=== PATIENT | male | born 1950 | race Caucasian/White ===

== ENCOUNTER 2019-04-12 13:25 | Outpatient (CLI) | payer MEDICARE, BC, SELFPAY ==
[2019-04-12 14:08] LABS: Basophils % 0.5 %; Eosinophils # 0.2 10^3/uL (0.0-0.8); Eosinophils % 5.4 %; Hemoglobin 13.2 g/dL (11.7-16.6); Lymphocytes # 1.4 10^3/uL (0.8-4.8); Lymphocytes % 33.8 %; Mean Corpuscular Hemoglobin 30.6 pg (28.0-34.0); Mean Corpuscular Volume 92.8 fL (80-94); Mean Platelet Volume 10.7 fL (7.4-10.4); Monocytes # 0.4 10^3/uL (0.2-0.9); Monocytes % 10.5 %; Neutrophils # 2.1 10^3/uL (1.8-7.7); Neutrophils % 49.8 %; Nucleated Red Blood Cells % 0 %; Platelet Count 86 10^3/cmm (130-400); Red Blood Count 4.31 10^6/uL (4.1-5.3); Red Cell Distribution Width 14.3 % (12.1-15.1); White Blood Count 4.1 10^3/uL (4.0-10.0)
--- NOTE | 2019-04-12 15:44 | ONC FU_ITS ---
Dr. Espinoza follow up note Patient: Soren Fox Unit #: [id number]: 1950 Dicatated By: Dennise Espinoza M.D.Date of Visit:Apr 12, 2019 Onc Med Follow-up/Prog Note History of Present Illness: Mr. Soren Rodrigez, is a 68-year-old gentleman with history of year-long mild to moderate thrombocytopenia, never required platelet transfusion and no history of gross bleeding As per patient in December 2017 he was diagnosed with cryptogenic hepatic cirrhosis as all the workup done was inconclusive. Is also diagnosed with nonbleeding esophageal varices. Not sure about size of spleen. As per patient his platelet count usually stay between 80 -100,000 , Patient denies any history of alcohol use. Patient denies any melena or hematochezia, denies any nausea or vomiting, denies any petechiae or ecchymosis patient denies any hematuria or hemoptysis or hematemesis. Patient denies any night sweats or peripheral lymphadenopathy or weight loss or recurrent fever. Patient denies taking any new medication. Patient denies any history of recurrent infections. Came for follow-up, denies any specific complaints, no nosebleed no gum bleeding no petechia, or ecchymosis, patient said he is not taking any aspirin or nonsteroidal. No jaundice, no hemoptysis or hematemesis. Medications: Amitriptyline HCl 1 Tablet (of 25 mg) Oral daily, Claritin 1 Capsule (of 10 mg) Oral daily, Dicyclomine HCl 1 Tablet (of 20 mg) Oral PRN, Finasteride 1 Tablet (of 5 mg) Oral daily, Gabapentin 2 Capsule (of 300 mg) Oral t.i.d., Imodium A-D 1 Tablet Oral PRN, Lasix 1 Tablet Oral daily, Lisinopril 1 Tablet (of 20 mg) Oral daily, metFORMIN HCl 1 Tablet (of 500 mg) Oral b.i.d., Polyethylene Glycol 3350 1 Powder daily, Promethazine HCl 1 Tablet (of 25 mg) Oral PRN, rOPINIRole HCl 1 Tablet (of 1 mg) Oral t.i.d., Tamsulosin HCl 1 Capsule (of 0.4 mg) Oral b.i.d. Allergies: levoFLOXacin Review of Systems: Constitutional - Appetite is fair but weight is decreasing. No fever, chills, hot flashes, or night sweats. Energy level is good, ENMT - Positive for sinus congestion/drainage. No mouth sores. No sore throat or difficulty swallowing, Hematologic/Lymphatic - Positive for easy bleeding, Respiratory - No shortness of breath. No cough. No pleuritic pain or hemoptysis, Cardiovascular - No angina pain. No palpitations, Gastrointestinal - No nausea or vomiting. No heartburn or acid reflux. Positive for diarrhea, no constipation. No blood in the stool or black stools, Genitourinary (M) - No dysuria or hematuria. No urinary frequency. No urgency or incontinence, Musculoskeletal - Positive for joint pain, Neurologic - Positive for headache and dizziness. No numbness/paresthesias or other focal neurologic symptoms, Psychiatric - Positive for anxiety and depression. No insomnia. Vital Signs: Performed on Apr 12, 2019 15:17 Height - 72.00 in Weight - 239.0 lbs (HIGH) BSA - 2.30 sq.m BMI - 32.41 (HIGH) Temperature - 98.5 F Pulse - 86 /min Respiration - 24 /min BP - 141/80 mm(hg) (HIGH) O2 Sat - 96 % Pain - 0 Performance Status: 0 - Fully active, able to carry on all predisease activities without restrictions. (ECOG) Physical Examination: ENMT - No oral exudates, ulcers, masses, thrush or mucositis. Oropharynx clear. Tongue normal, Respiratory - Lungs are clear to auscultation without rhonchi or wheezing, Cardiovascular - Regular rate and rhythm of heart, Abdomen - Non-tender, non-distended, Good bowel sounds. No guarding or rebound tenderness. No pulsatile masses, Extremities - no edema. Lab/Imaging: Test performed on Apr 12, 2019 13:29 WBC 4.1 10^9/L RBC 4.31 10^12/L HGB 13.2 g/dL HCT 40.0 % MCV 92.8 fl MCH 30.6 pg MCHC 33.0 g/dL RDW 14.3 % Platelet Count 86 10^9/L MPV 10.7 fL Neutrophils (Gran) 2.1 10^9/L Lymphocytes 1.4 10^9/L Monocytes 0.4 10^9/L Eosinophils 0.2 10^9/L Basophils 0.0 10^9/L Manual Lymphocytes 33.8 % Manual Monocytes 10.5 % Manual Eosinophils 5.4 % Manual Basophils 0.5 % NRBCs 0.0 /100 WBC Test performed on Feb 08, 2019 13:37 Neutrophil % 52.6 % Lymphocyte % 30.5 % Monocyte % 10.0 % Eosinophil % 6.3 % Basophils % 0.3 % Impression: Mild to moderate leukopenia/thrombocytopenia, etiology appears to be multifactorial, including possibility of splenic sequestration as patient has history of cryptogenic hepatic cirrhosis and nonbleeding esophageal varices e.g. sign of portal hypertension thus possibility of splenomegaly/splenic sequestration cannot be ruled out. Considering his age, coexistent underlying myelodysplasia cannot be ruled out. Other possibility could be medication induced but less likely. History of cryptogenic hepatic cirrhosis, diagnosed in December 2017, now being followed by planning analyst in [facility]. Esophageal varices, nonbleeding type. Plan: Discussed with patient regarding his labs white blood count hb 13.2 crit 40 platelets 86,000 Clinically, patient is doing well, no signs symptom suggestive of gross bleeding, no petechiae or ecchymosis. His follow-up CBC shows stable mild to moderate thrombocytopenia. At this point no further workup and will continue to monitor return to clinic in 2 months with CBC unless episode of bleeding. Patient was advised to avoid nonsteroidals or aspirin or any trauma. Signed By: Dennise Espinoza M.D. <<Signature on File>>
== END 2019-04-12 13:26 | disposition home or self-care (01) ==
LOC: ONCMED 13:26
PROVIDERS: Family Provider Internal Medicine; PCP Internal Medicine; Visit Provider Internal Medicine Hematology & Oncology
DX: D69.6 Thrombocytopenia, unspecified (principal); K74.60 Unspecified cirrhosis of liver; I85.10 Secondary esophageal varices without bleeding
CPT/HCPCS: 36415; 85025; G0463

== ENCOUNTER 2019-05-23 09:42 | Day surgery (SDC) | payer MEDICARE, BC, SELFPAY ==
[2019-05-20 14:35] VITALS: BMI 31.8
[2019-05-23] MEDS: sodium chloride 0.9% 1,000 ML 30 ML (10:15)
[2019-05-23 10:26] VITALS: BP 124/75; PULSE 75; RESP 18; TEMP 36.9; O2SAT 97
[2019-05-23 10:30] LABS: Glucose Point of Care 91 mg/dL (70-110)
--- NOTE | 2019-05-23 10:53 | ANES.PREANE2 ---
Pre-Anesthetic Assessment Pre-Anesthetic Assessment: Height/Weight: Height 1.83 m Weight 106.594 kg Temp Pulse Resp BP Pulse Ox 98.4 F 75 18 124/75 97 05/23/19 10:26 05/23/19 10:26 05/23/19 10:26 05/23/19 10:05/23/19 10:26 Proposed Procedure: Operation Date: 05/23/19 12:00 Proposed Procedures p Colonoscopy(Not Applicable) - Corby Wood MD Was Beta Nu taken within 24 hours: N/A Last intake: Intake Last Liquid Date 05/22/19 Last Liquid Time 22:00 Last Solid Date 05/21/19 Social: Social History: No alcohol and No tobacco Exam: Pre-Anes Outpt Exam: alert, oriented x 3, clear to auscultation bilaterally and regular rate & rhythm Airway: Submandibular: Other (limited) Cervical ROM: Other (limited ) MP: 3 Dentition: Partials (top) History/ROS: No significant history except as noted and No significant complaints Pulmonary: Pulmonary: None reported CV/HEM: CV/HEM: HTN : Comments: UPJ obstruction Hepatic: Hepatic: Cirrohsis (cryptogenic) GI: GI: None reported Metabolic: Metabolic: DM and Morbid obesity Musc/skel: Musc/skel: OA/DJD Neuropsych: Neuropsych: None reported Anesthetic Plan: ASA status: 3 Anesthesia: MAC PFSH Anesthesia PFSH: Social History (Updated 05/20/19 @ 14:27 by Nevaeh Nair) Smoking and tobacco status: never smoked Alcohol intake: never Data Anesthesia Other Labs: Laboratory Results - last 48 hr 05/23/19 10:26 POC Glucose 91 Cardiac Studies: No Data to Display
--- NOTE | 2019-05-23 11:43 | W.PM.OPSFHP ---
Same Day Surgery H&P Indication for Procedure/HPI DATE OF PROCEDURE: May 23, 2019 CHIEF COMPLAINT/INDICATIONFOR SURGICAL PROCEDURE: Abdominal pain PREOP DIAGNOSIS: Colitis PLANNED PROCEDRUE: Operation Date: 05/23/19 12:00 Proposed Procedures p Colonoscopy(Not Applicable) - Corby Wood MD This is a pleasant 68 years old gentleman with previous hospitalization due to colitis patient was treated conservatively and was discharged with the plan to perform a colonoscopy at some, patient does report he has male partner being HIV positive but the patient himself is HIV negative, the original plan was to perform a screening colonoscopy last March but for some reason it got postponed to this month yet the patient continues to have history of abdominal cramps and bloating. According to him he was tested for HIV and was negative ROS All systems have been reviewed negative except as per the above Medications/Allergies* Home Medications Medication Instructions Recorded Confirmed Type dicyclomine 10 mg PO QID PRN 05/20/19 05/20/19 History finasteride 5 mg PO DAILY 05/20/19 05/23/19 History gabapentin 600 mg PO TID 05/20/19 05/23/19 History lactulose 30 ml PO DAILY 05/20/19 05/20/19 History lisinopril 10 mg PO DAILY 05/20/19 05/23/19 History metformin 500 mg PO BID 05/20/19 05/23/19 History multivitamin [Multiple Vitamins] 1 tab PO DAILY 05/20/19 05/23/19 History ropinirole 2 mg PO TID 05/20/19 05/23/19 History tamsulosin 0.8 mg PO BID 05/20/19 05/23/19 History Allergies/Adverse Reactions Allergy/AdvReac Type Severity Reaction Status Date / Time ibuprofen Allergy ADR-Nausea Verified 05/23/19 11:43 Iodinated Contrast Media Allergy Unknown Verified 05/23/19 11:43 levofloxacin [From Levaquin] Allergy Unknown Verified 05/23/19 11:43 Pertinent History/Comorbid Conditions* Social History Smoking and tobacco status: never smoked Alcohol intake: never Pertinent Exam Findings alert and procedure specific exam findings (Abdominal examination nontender mildly distended soft no guarding or peritonitis) Recommendations Surgery/Procedure today Other Plans: Plan of care; After thorough history and physical examination and reviewing the chart, plan to perform screening colonoscopy in the GI lab. All questions have been answered and all concerns have been addressed to patient's satisfaction. Informed consent per chart were,Indications, risks, benefits, and alternatives were all discussed with the patient and did agree to proceed. Verbal and written Instructions were given to the patient for colonoscopy prep Coding Level of Care Code Acute Medical Health Researcher for Chg Fwd Time Spent (min) 10
[2019-05-23 12:15] VITALS: BP 98/61; PULSE 67; RESP 16; TEMP 36.2; O2SAT 95
--- NOTE | 2019-05-23 12:19 | ANE.PACU2 ---
 Inpatient post-anesthesia follow up: Airway intact: Yes Vital signs: Temperature 97.2 F Pulse Rate 67 Respiratory Rate 16 Blood Pressure 98/61 Pulse Oximetry 95 Oxygen Delivery Me thod Nasal Cannula Oxygen Flow Rate 2 Fraction of Inspir ed Oxygen Hydration adequate: Yes Nausea and vomiting: No Mental status: Baseline
[2019-05-23 12:30] VITALS: BP 95/57; PULSE 72; RESP 18; TEMP 36.2; O2SAT 95
== END 2019-05-23 12:51 | disposition home or self-care (01) ==
PROVIDERS: Family Provider Internal Medicine; PCP Internal Medicine; Visit Provider Surgery
PROC: 0DJD8ZZ Inspection of Lower Intestinal Tract, Via Natural or Artificial Opening Endoscopic (ICD-10-PCS; CPT 45378; principal; 2019-05-23 12:00)
DX: K52.9 Noninfective gastroenteritis and colitis, unspecified (principal); K57.30 Diverticulosis of large intestine without perforation or abscess without bleeding; I10 Essential (primary) hypertension; E11.9 Type 2 diabetes mellitus without complications; E66.01 Morbid (severe) obesity due to excess calories; M19.90 Unspecified osteoarthritis, unspecified site
CPT/HCPCS: 12345; 36416; 45378; 82962; J2704; J7030

== ENCOUNTER 2019-06-03 08:36 | Outpatient (CLI) | payer MEDICARE, BC, SELFPAY ==
--- NOTE | 2019-06-03 | XR_ITS ---
WS: [id number] CHEST 2 VIEWS HISTORY: COUGH, SOB, CONGESTION X 1 WEEK COMPARISON: 01/26/2019 Lungs: Hyperinflated lungs with diffuse interstitial thickening. New area of atelectasis which is sub segmental and linear at the LEFT lung base. No focal pneumonia. Cardiac size: Normal. Mediastinum/Aorta: Normal mediastinum. Bones: Normal. XR/XR chest 2V* [id number] IMPRESSION: 1. Diffuse interstitial thickening may be related to acute bronchitis or mild interstitial edema. 2. No pneumonia.
== END 2019-06-03 08:37 | disposition home or self-care (01) ==
PROVIDERS: Family Provider Internal Medicine; PCP Internal Medicine; Visit Provider Nurse Practitioner Family
DX: Z01.89 Encounter for other specified special examinations (principal)

== ENCOUNTER 2019-06-28 07:05 | Outpatient (CLI) | payer MEDICARE, BC, SELFPAY ==
[2019-06-28 08:04] LABS: Basophils % 0.3 %; Eosinophils # 0.2 10^3/uL (0.0-0.8); Eosinophils % 6.6 %; Hematocrit 38.7 % (42.0-52.0); Hemoglobin 12.5 g/dL (11.7-16.6); Lymphocytes # 1.2 10^3/uL (0.8-4.8); Lymphocytes % 40.1 %; Mean Corpuscular HGB Conc 32.3 g/dL (30.0-36.0); Mean Corpuscular Hemoglobin 31.2 pg (28.0-34.0); Mean Corpuscular Volume 96.5 fL (80-94); Mean Platelet Volume 11.2 fL (7.4-10.4); Monocytes # 0.3 10^3/uL (0.2-0.9); Monocytes % 9.4 %; Neutrophils # 1.2 10^3/uL (1.8-7.7); Neutrophils % 43.3 %; Nucleated Red Blood Cells % 0 %; Platelet Count 71 10^3/cmm (130-400); Red Blood Count 4.01 10^6/uL (4.1-5.3); Red Cell Distribution Width 14.6 % (12.1-15.1); White Blood Count 2.9 10^3/uL (4.0-10.0)
== END 2019-06-28 07:06 | disposition home or self-care (01) ==
LOC: ONCMED 06-29 09:46
PROVIDERS: Family Provider Internal Medicine; PCP Internal Medicine; Visit Provider Internal Medicine Hematology & Oncology
DX: D69.6 Thrombocytopenia, unspecified (principal)
CPT/HCPCS: 36415; 85025

== ENCOUNTER 2020-02-28 09:04 | Outpatient (CLI) | payer MEDICARE, BC, SELFPAY ==
--- NOTE | 2020-02-28 | US_ITS ---
WS: [id number] RIGHT UPPER QUADRANT ULTRASOUND HISTORY: CIRRHOSIS COMPARISON: 01/12/2019 Liver: 14.0 cm in length. The entire liver is poorly visualized. There is marked attenuation from hep atic steatosis. No mass or bile duct dilatation. Gallbladder: Normally distended gallbladder. No: Physis. There may be a small amount of fluid adjacen t to the gallbladder or ascites. CBD: 0.4 cm Pancreas: Not visualized. Right kidney: 11.6 cm in length. Normal size and echogenicity. No hydronephrosis or mass. Aorta and IVC: Not visualized. Tiny amount fluid adjacent to the gallbladder may be ascites. US/US liver [id number] IMPRESSION: 1. Significantly limited evaluation of the RIGHT upper quadrant. 2. Negative gallbladder. 3. There is a small amount of fluid adjacent to the gallbladder which may be a scites. 4. Marked hepatic steatosis. Liver is incompletely visualized.
== END 2020-02-28 09:05 | disposition home or self-care (01) ==
LOC: RADOUTREAD 11:11
PROVIDERS: PCP Internal Medicine; Visit Provider Internal Medicine
DX: K74.60 Unspecified cirrhosis of liver (principal); K76.0 Fatty (change of) liver, not elsewhere classified
CPT/HCPCS: 76705

== ENCOUNTER 2020-03-20 10:34 | Outpatient (CLI) | payer MEDICARE, BC, SELFPAY ==
--- NOTE | 2020-03-20 11:00 | US_ITS ---
WS: [id number] RENAL ULTRASOUND HISTORY: Hydronephrosis. COMPARISON: 03/16/2019 TECHNIQUE: 2-D and color Doppler imaging of the kidney submitted. Right kidney: 12.0 cm x 5.0 cm x 5.7 cm. Normal echogenicity with no hydronephrosis or mass. Left kidney: 13.0 cm x 5.0 cm x 5.7 cm. Normal size kidney. Moderate hydronephrosis and extrarenal pelvis which is dilated. This is been prev iously described. Be related to a UP junction obstruction. The LEFT ureter is not dilated. Nonobstruc ting calcification in the lower pole measures 7 mm. Aorta: Normal. Urinary Bladder: Normally distended urinary bladder. There is mild diffuse bladder wall thickening. P rostate gland is enlarged encroaching into the bladder. Similar appearance as to the prior study. US/US renal BI* [id number] IMPRESSION: 1. Moderate hydronephrosis LEFT kidney. No ureteral dilatation. Favor LEFT UP junction obstruction which has been previously described. No progression. 2. Enlarged prostate gland resulting in mild diffuse bladder wall hypertrophy.
== END 2020-03-20 10:35 | disposition home or self-care (01) ==
LOC: US 10:36
PROVIDERS: PCP Internal Medicine; Visit Provider Urology
DX: N13.30 Unspecified hydronephrosis (principal); N40.0 Benign prostatic hyperplasia without lower urinary tract symptoms; N32.89 Other specified disorders of bladder
CPT/HCPCS: 76770; 81003

== ENCOUNTER 2020-04-24 11:46 | Emergency (ER) | payer MEDICARE, BC, SELFPAY ==
[2020-04-24 11:51] VITALS: BP 130/71; PULSE 92; RESP 20; TEMP 36.7; O2SAT 95; BMI 33.9
[2020-04-24 11:59] VITALS: BP 152/79; PULSE 91; O2SAT 96
--- NOTE | 2020-04-24 12:22 | US_ITS ---
WS: [id number] Exam: US abdomen lmt fluid [id number] Date/Time of Exam: 04/24/2020 12:28 PM Reason For Exam: cirrhosis, abd distension, ?ascites A limited abdominal ultrasound was performed for detection of possible ascites. Sonographic evaluation of the upper and lower quadrants of the right and left abdomen reveal no ascit es. US/US abdomen lmt fluid [id number] IMPRESSION: 1. No ascites demonstrated in the right or left abdomen.
[2020-04-24 12:34] LABS: Basophils % 0.3 %; Eosinophils # 0.1 10^3/uL (0.0-0.8); Eosinophils % 4.1 %; Hematocrit 36.9 % (42.0-52.0); Hemoglobin 11.8 g/dL (11.7-16.6); Lymphocytes # 0.9 10^3/uL (0.8-4.8); Lymphocytes % 26.2 %; Mean Corpuscular Hemoglobin 31.4 pg (28.0-34.0); Mean Corpuscular Volume 98.1 fL (80-94); Mean Platelet Volume 10.7 fL (7.4-10.4); Monocytes # 0.3 10^3/uL (0.2-0.9); Monocytes % 8.5 %; Neutrophils # 2.08 10^3/uL (1.8-7.7); Neutrophils % 60.6 %; Nucleated Red Blood Cells % 0 %; Platelet Count 68 10^3/cmm (130-400); Red Blood Count 3.76 10^6/uL (4.1-5.3); Red Cell Distribution Width 14.2 % (12.1-15.1); White Blood Count 3.4 10^3/uL (4.0-10.0)
[2020-04-24 12:50] LABS: INR 1.16 (0.8-1.2)
[2020-04-24 12:51] LABS: Add Urine Microscopic? NO
[2020-04-24 12:57] LABS: Ammonia 53 umol/L (16-60); Lactate (Lactic Acid level) 1.8 mmol/L (0.5-2.2)
--- NOTE | 2020-04-24 12:59 | CT_ITS ---
WS: [id number] Exam: CT abdomen pelvis w con* [id number] Date/Time of Exam: 04/24/2020 1:32 PM Reason For Exam: abdominal pain and distension DLP: 1916.[address] scans at [facility] use at least one of these dose optimization techniques: automat ed exposure control; mA and/or kV adjustment per patient size (includes targeted exams where dose is matched to clinical indication); or iterative reconstruction. Compared to prior study 01/12/2019. Lower lung zones are clear. Coronary artery calcifications. The liver is unremarkable. Hydropic gallb ladder noted unchanged. The spleen and pancreas appear normal. The stomach is unremarkable. The abdom inal aorta is normal in caliber. Normal adrenal glands. The right kidney appears normal. Extrarenal p shantell noted on the left with mild fullness of the left pyelocalyceal system unchanged in appearance. 7 mm nonobstructing stone noted in the left kidney unchanged. The portal vein and IVC are patent. The re is wall thickening of the left colon suspicious for colitis. There is colonic diverticulosis most severe in the sigmoid region. No sign of acute appendix. Chronic paracolic stranding along the ascend ing colon unchanged. Small bowel loops are not dilated. No free air. No significant lymphadenopathy. Small periumbilical ventral hernia containing varicosities and fat. Unremarkable urinary bladder. No mass or adenopathy in the pelvis. Stable appearing bony sclerosis and Schmorl's nodes involving the l ower thoracic vertebra. No destructive bone lesions are seen. CT/CT abdomen pelvis w con* [id number] IMPRESSION: 1. Bowel wall thickening and pericolic stranding along the descending colon emmie picious for colitis. 2. Moderately advanced colonic diverticulosis most severe in the sigmoid region . 3. Paracolic fat stranding which appears to be chronic along the ascending colo n. 4. Hydropic gallbladder which appears to be chronic. 5. No mass or significant lymphadenopathy. 6. Mild chronic dilatation of the left pyelocalyceal system with extrarenal pel vis. 7 mm nonobstructing stone in the left kidney. Additional nonacute findings as above.
[2020-04-24 13:11] LABS: Bilirubin Urine Neg (Negative); Blood Urine Neg (Negative); Glucose Urine UA Norm (Normal); Ketones Urine Negative (Negative); Leukocyte Esterase Urine Negative (Negative); Nitrate Urine Negative (Negative); Protein Urine Neg (Negative); Specific Gravity, Urine 1.015 (1.005-1.030); Urine Appearance Clear (CLEAR); Urine Color Yellow (Yellow); Urobilinogen Urine 1 mg/dL (Negative); pH Urine 7 (5-7)
[2020-04-24 13:11] LABS: NT Pro B Type Natriuretic Pept 6 pg/mL (0-125)
[2020-04-24 13:18] VITALS: BP 127/83; PULSE 84; O2SAT 96
[2020-04-24 13:23] LABS: Alanine Aminotransferase 35 U/L (0-41); Albumin Level 3.6 g/dL (3.5-5.2); Alkaline Phosphatase 83 IU/L (40-130); Anion Gap 11.9 (5-19); Aspartate Amino Transferase 42 U/L (0-40); Blood Urea Nitrogen 13 mg/dL (8-23); C Reactive Protein 3.9 mg/L (0.0-4.9); Calcium 9.4 mg/dL (8.5-10.5); Carbon Dioxide 26 mmol/L (22-29); Chloride 103 mmol/L (98-107); Creatine Phosphokinase 69 U/L (39-308); Globulin 4.1 g/dL (1.3-4.6); Glomerular Filtration Rate 66.2 mL/min (90-130); Glucose 173 mg/dL (65-115); Lipase 56 U/L (13-60); Osmolality Calculated 288 mOsm/kg (285-295); Potassium 3.9 mmol/L (3.5-5.1); Sodium 137 mmol/L (136-145); Total Bilirubin 0.8 mg/dL (0.15-1.2); Total Protein 7.7 g/dL (6.6-8.7)
[2020-04-24] MEDS: diphenhydrAMINE 50 mg/mL SDV 1mL IVP (13:30)
[2020-04-24] MEDS: hydrocortisone 100 mg/2 mL SDV IVP (13:30)
[2020-04-24 13:37] VITALS: BP 115/71; PULSE 82; O2SAT 95
[2020-04-24] MEDS: iodixanol 320 mg/mL 100mL Btl IV (13:46)
--- NOTE | 2020-04-24 13:56 | W.ED.GENADLT ---
HPI - General Adult General: Chief complaint: General Medical Stated complaint: has cirrhosis of the liver, severe bloating Time Seen by Provider: 04/24/20 12:03 Source: patient Mode of arrival: ambulatory Limitations: no limitations History of Present Illness: HPI narrative: Patient is a 69-year-old male with a history of HUITRON and cirrhosis presents to the emergency department with complaints of abdominal pain and distention for a week. His friends advised that he come in for to be evaluated because he may have ascites and need a paracentesis. He denies any fever, nausea or vomiting. He denies any urinary symptoms. Onset (ago): week(s) (1) Location: abdomen Radiation: non-radiation Severity: moderate Quality: dull Pain Consistency: constant Relieving factors: none Exacerbating factors: none Associated symptoms: Reports dyspnea and short of breath; Deny chest pain, confusion, cough, diaphoresis, decreased appetite, fevers/chills, headache(s), malaise, nausea, rash, palpitations, seizures, syncope, vomiting or weakness Treatments prior to arrival: none Review of Systems General: Reports: 10 or more systems reviewed and unremarkable except in HPI and below Const: Denies: malaise or diaphoresis Eyes: Denies: change in vision or blurry vision ENMT: Denies: throat pain, enlarged tonsils, odynophagia, hoarseness, mouth pain or swelling of lips/tongue Card: Denies: chest pain, palpitations or syncope Resp: Reports: dyspnea GI: Denies: nausea or vomiting : Denies: flank pain, dysuria, urinary frequency, urinary urgency or urinary hesitancy Musc: Denies: neck pain, back pain or extremity swelling Skin/Breast: Denies: rash Neuro: Denies: headache(s) or confusion Endo: Denies: polyuria, polydipsia or tired all the time PFSH ED PFSH: Medical History BPH with obstruction/lower urinary tract symptoms Chronic constipation Colitis Diabetes mellitus Diverticulosis Enteritis Esophageal varices Hemorrhoids HTN (hypertension) Hydronephrosis Hyperlipemia Osteoarthritis Renal calculus Umbilical hernia Surgical History Hx of appendectomy Hx of umbilical hernia repair Social History Smoking and tobacco status: never smoked Alcohol intake: never Marital status: Current occupational status: retired Physical Exam Const: COMMON NORMALS: no acute distress, average body habitus, patient oriented x3, no limitations, healthy appearing, alert and well nourished HENMT: COMMON NORMALS: normocephalic, atraumatic and moist oral mucous membranes HEAD & SCALP: normocephalic and atraumatic Neck/C-Spine: COMMON NORMALS: no meningeal signs and no JVD Resp: COMMON NORMALS: normal respiratory effort, No retractions, No use of accessory muscles, clear to auscultation bilaterally and percussion normal AUSCULTATION: clear to auscultation bilaterally PERCUSSION: percussion normal Cardio: COMMON NORMALS: no JVD, regular rate, regular rhythm, S1 normal heart sound present, S2 normal heart sound present, No gallops present (Cardio), No clicks present (Cardio), No murmurs present (Cardio), No rub (Cardio) and Peripheral pulses 2+ throughout RATE: regular rate RHYTHM: regular rhythm HEART SOUNDS: S1 normal heart sound present and S2 normal heart sound present PERIPHERAL PULSES: Peripheral pulses 2+ throughout GI: COMMON NORMALS: Soft to palpation, no masses and no bruits INSPECTION: Yes abdominal distension AUSCULTATION: Yes normoactive bowel sounds PALPATION: Yes Soft to palpation, Yes Tenderness to palpation present (GI) (vague generalized), No Guarding due to palpation present (GI) and No Rigid due to palpation PERCUSSION: dullness to percussion RECTAL EXAM: Yes deferred Extremity: COMMON NORMALS: normal to inspection, full ROM, capillary refill normal and no calf tenderness GENERAL: Yes edema Neuro: COMMON NORMALS: patient oriented x3 SENSORIUM/ORIENTATION: Yes alert MENINGEAL SIGNS: Yes no meningeal signs Skin: COMMON NORMALS: no rashes or lesions noted, no wounds, turgor normal, no jaundice, no petechiae and no mottling GENERAL SKIN EXAM: no rashes or lesions noted and turgor normal Course Reevaluation(s): Reevaluation #1: Discussed his lab and imaging findings with him. He has colitis, will benefit from antibiotics. He also has a hydropic gallbladder which he knows about as well as a chronic kidney stone. He has significant diverticulosis but no mention of diverticulitis. We will give him a dose of intravenous antibiotic here in the emergency department and discharge him home on oral Augmentin as he has allergies to fluoroquinolones. He voiced understanding and is in agreement with the plan Time: 14:23 Vital Signs: Vital signs: Vital Signs Temperature 98.0 F 04/24/20 11:51 Pulse Rate 74 04/24/20 15:01 Respiratory Rate 20 H 04/24/20 11:51 Blood Pressure 116/69 04/24/20 15:01 Pulse Oximetry 95 04/24/20 15:01 MDM - General Adult MDM Narrative: Medical decision making narrative: 69-year-old pleasant gentleman with a history of cirrhosis presents to the emergency department with abdominal pain and distention. Evaluation in the emergency department shows he does not have ascites or cirrhosis. He does however home colitis which is likely responsible for his symptoms. He is given a prescription for oral antibiotics after he received a dose of intravenous Zosyn in the emergency department he was given Augmentin as he has allergies to fluoroquinolones. 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 The patient knows about these 2. He is to follow-up with his primary care provider. Medical Records: Attestation: I reviewed the patient's medical records. Lab Data: Attestation: I reviewed the patient's lab results. Labs: Lab Results 04/24/20 04/24/20 04/24/20 Range/Units 12:21 12:21 12:21 WBC 3.4 L (4.0-10.0) 10^3/ uL RBC 3.76 L (4.1-5.3) 10^6/u L Hgb 11.8 (11.7-16.6) g/dL Hct 36.9 L (42.0-52.0) % MCV 98.1 H (80-94) fL MCH 31.4 (28.0-34.0) pg MCHC 32.0 (30.0-36.0) g/dL RDW 14.2 (12.1-15.1) % Plt Count 68 L (130-400) 10^3/c mm MPV 10.7 H (7.4-10.4) fL Neut % (Auto) 60.6 % Lymph % (Auto) 26.2 % Morehouse % (Auto) 8.5 % Eos % (Auto) 4.1 % Baso % (Auto) 0.3 % Neut # (Auto) 2.08 (1.8-7.7) 10^3/u L Lymph # (Auto) 0.9 (0.8-4.8) 10^3/u L Morehouse # (Auto) 0.3 (0.2-0.9) 10^3/u L Eos # (Auto) 0.1 (0.0-0.8) 10^3/u L Baso # (Auto) 0.0 (0.0-0.1) 10^3/u L Nucleated RBC % (a uto) 0 % Nucleated RBCs # 0.0 /100WBC PT 15.20 H (12.1-14.9) SECO NDS INR 1.16 (0.8-1.2) Sodium 137 (136-145) mmol/L Potassium 3.9 (3.5-5.1) mmol/L Chloride 103 (98-107) mmol/L Carbon Dioxide 26 (22-29) mmol/L Anion Gap 11.9 (5-19) BUN 13 (8-23) mg/dL Creatinine 1.1 (0.7-1.2) mg/dL GFR Calculation 66.2 L (90-130) mL/min Glucose 173 H (65-115) mg/dL Calculated Osmolal ity 288 (285-295) mOsm/k g Lactate (0.5-2.2) mmol/L Calcium 9.4 (8.5-10.5) mg/dL Total Bilirubin 0.8 (0.15-1.2) mg/dL AST 42 H (0-40) U/L ALT 35 (0-41) U/L Alkaline Phosphata se 83 (40-130) IU/L Ammonia (16-60) umol/L Creatine Kinase 69 (39-308) U/L C-Reactive Protein 3.9 (0.0-4.9) mg/L NT-Pro-B Natriuret Pep 6 (0-125) pg/mL Total Protein 7.7 (6.6-8.7) g/dL Albumin 3.6 (3.5-5.2) g/dL Globulin 4.1 (1.3-4.6) g/dL Lipase 56 (13-60) U/L Procalcitonin 0.10 (0-0.5) ng/mL Urine Color (Yellow) Urine Appearance (CLEAR) Urine pH (5-7) Ur Specific Gravit y (1.005-1.030) Urine Protein (Negative) Urine Glucose (UA) (Normal) Urine Ketones (Negative) Urine Blood (Negative) Urine Nitrate (Negative) Urine Bilirubin (Negative) Urine Urobilinogen (Negative) mg/dL Ur Leukocyte Marivel ase (Negative) 04/24/20 04/24/20 04/24/20 Range/Units 12:21 12:21 12:45 WBC (4.0-10.0) 10^3/ uL RBC (4.1-5.3) 10^6/u L Hgb (11.7-16.6) g/dL Hct (42.0-52.0) % MCV (80-94) fL MCH (28.0-34.0) pg MCHC (30.0-36.0) g/dL RDW (12.1-15.1) % Plt Count (130-400) 10^3/c mm MPV (7.4-10.4) fL Neut % (Auto) % Lymph % (Auto) % Morehouse % (Auto) % Eos % (Auto) % Baso % (Auto) % Neut # (Auto) (1.8-7.7) 10^3/u L Lymph # (Auto) (0.8-4.8) 10^3/u L [place] # (Auto) (0.2-0.9) 10^3/u L Eos # (Auto) (0.0-0.8) 10^3/u L Baso # (Auto) (0.0-0.1) 10^3/u L Nucleated RBC % (a uto) % Nucleated RBCs # /100WBC PT (12.1-14.9) SECO NDS INR (0.8-1.2) Sodium (136-145) mmol/L Potassium (3.5-5.1) mmol/L Chloride (98-107) mmol/L Carbon Dioxide (22-29) mmol/L Anion Gap (5-19) BUN (8-23) mg/dL Creatinine (0.7-1.2) mg/dL GFR Calculation (90-130) mL/min Glucose (65-115) mg/dL Calculated Osmolal ity (285-295) mOsm/k g Lactate 1.8 (0.5-2.2) mmol/L Calcium (8.5-10.5) mg/dL Total Bilirubin (0.15-1.2) mg/dL AST (0-40) U/L ALT (0-41) U/L Alkaline Phosphata se (40-130) IU/L Ammonia 53 (16-60) umol/L Creatine Kinase (39-308) U/L C-Reactive Protein (0.0-4.9) mg/L NT-Pro-B Natriuret Pep (0-125) pg/mL Total Protein (6.6-8.7) g/dL Albumin (3.5-5.2) g/dL Globulin (1.3-4.6) g/dL Lipase (13-60) U/L Procalcitonin (0-0.5) ng/mL Urine Color Yellow (Yellow) Urine Appearance Clear (CLEAR) Urine pH 7 (5-7) Ur Specific Gravit y 1.015 (1.005-1.030) Urine Protein Neg (Negative) Urine Glucose (UA) Norm (Normal) Urine Ketones Negative (Negative) Urine Blood Neg (Negative) Urine Nitrate Negative (Negative) Urine Bilirubin Neg (Negative) Urine Urobilinogen 1 H (Negative) mg/dL Ur Leukocyte Marivel ase Negative (Negative) Imaging Data^: US: Attestation: I personally reviewed and interpreted this imaging study as follows: Radiologist's impression: [address] [address] Ultrasound Report Signed Patient: Soren Fox #: [id number] : 1950Acct#:[id number] Age/Sex: 69 / MADM Date: 04/24/20 Loc: ERRoom/Bed: Attending Dr: Ordering Provider/Ordering MD: Peace Doherty MD, [facility] [place] Date of Service: 04/24/20 Procedure(s): US abdomen lmt fluid [id number] Accession Number(s): [id number] Report Number: [id number] WS: [id number] Exam: US abdomen lmt fluid [id number] Date/Time of Exam: 04/24/2020 12:28 PM Reason For Exam: cirrhosis, abd distension, ?ascites A limited abdominal ultrasound was performed for detection of possible ascites. Sonographic evaluation of the upper and lower quadrants of the right and left abdomen reveal no ascites. US/US abdomen lmt fluid [id number] IMPRESSION: 1. No ascites demonstrated in the right or left abdomen. Dictated By:Eddie Anaya DO Signed By:Unique Almaguer Date/Time:04/24/20 132 DD/ 132 CT Abd/Pel: Attestation: I personally reviewed and interpreted this imaging study as follows: Radiologist's impression: [address] [address] [address] Scan Report Signed Patient: Soren Fox #: [id number] : 1950Acct#:[id number] Age/Sex: 69 / MADM Date: 04/24/20 Loc: ERRoom/Bed: Attending Dr: Ordering Provider/Ordering MD: Peace Doherty MD, [facility] [place] Date of Service: 04/24/20 Procedure(s): CT abdomen pelvis w con* [id number] Accession Number(s): [id number] Report Number: [id number] WS: [id number] Exam: CT abdomen pelvis w con* [id number] Date/Time of Exam: 04/24/2020 1:32 PM Reason For Exam: abdominal pain and distension DLP: 1916.[address] scans at [facility] use at least one of these dose optimization techniques: automated exposure control; mA and/or kV adjustment per patient size (includes targeted exams where dose is matched to clinical indication); or iterative reconstruction. Compared to prior study 01/12/2019. Lower lung zones are clear. Coronary artery calcifications. The liver is unremarkable. Hydropic gallbladder noted unchanged. The spleen and pancreas appear normal. The stomach is unremarkable. The abdominal aorta is normal in caliber. Normal adrenal glands. The right kidney appears normal. Extrarenal pelvis noted on the left with mild fullness of the left pyelocalyceal system unchanged in appearance. 7 mm nonobstructing stone noted in the left kidney unchanged. The portal vein and IVC are patent. There is wall thickening of the left colon suspicious for colitis. There is colonic diverticulosis most severe in the sigmoid region. No sign of acute appendix. Chronic paracolic stranding along the ascending colon unchanged. Small bowel loops are not dilated. No free air. No significant lymphadenopathy. Small periumbilical ventral hernia containing varicosities and fat. Unremarkable urinary bladder. No mass or adenopathy in the pelvis. Stable appearing bony sclerosis and Schmorl's nodes involving the lower thoracic vertebra. No destructive bone lesions are seen. CT/CT abdomen pelvis w con* [id number] IMPRESSION: 1. Bowel wall thickening and pericolic stranding along the descending colon suspicious for colitis. 2. Moderately advanced colonic diverticulosis most severe in the sigmoid region. 3. Paracolic fat stranding which appears to be chronic along the ascending colon. 4. Hydropic gallbladder which appears to be chronic. 5. No mass or significant lymphadenopathy. 6. Mild chronic dilatation of the left pyelocalyceal system with extrarenal pelvis. 7 mm nonobstructing stone in the left kidney. Additional nonacute findings as above. Dictated By:Eddie Anaya DO Signed By:Unique Almaguer Date/Time:04/24/20 1406 Discharge Plan Discharge Patient Disposition: Home Clinical Impression: Colitis, Renal calculus Hydronephrosis Qualifiers: Hydronephrosis type: unspecified Qualified Code(s): N13.30 - Unspecified hydronephrosis Condition: Stable Prescriptions: New Augmentin 875-125 mg tablet 1 tab PO Q12H Qty: 14 RF: 0 Continued multivitamin [Multiple Vitamins] Tablet 1 tab PO DAILY@08 RF: 0 metformin 500 mg tablet 500 mg PO BID@,18 RF: 0 lisinopril 20 mg tablet 10 mg PO DAILY@08 RF: 0 tamsulosin 0.4 mg capsule 0.4 mg PO BID@, RF: 0 ropinirole 2 mg tablet 2 mg PO TID@,, RF: 0 gabapentin 300 mg capsule 600 mg PO TID@,, RF: 0 dicyclomine 10 mg capsule 10 mg PO QID PRN (Reason: Abdominal Discomfort) RF: 0 lactulose 10 gram/15 mL solution 30 ml PO DAILY RF: 0 Lasix 20 mg Tablet 20 mg PO DAILY PRN (Reason: Edema) RF: 0 albuterol sulfate 90 mcg/actuation Hfa Aerosol Inhaler 1 puff INHALATION QID PRN (Reason: Shortness Of Breath) RF: 0 finasteride 5 mg tablet 5 mg PO DAILY@08 RF: 0 Discharge Orders: Discharge ED (Routine); Ordered 04/24/20 Ordered By: Peace Doherty Referrals: Ghanshyam Zhang DO [Primary Care Provider] - 1-3 days Discharge Diet: Usual diet Discharge Activity: Increase activity as tolerated Patient Instructions: Diverticulosis (ED), Kidney Stones (ED), Infectious Colitis (ED) Activity Restrictions/Additional Instructions: Return for any new or worsening symptoms. Follow-up with your primary care provider within 3 days. Take the antibiotic as prescribed. Coding Level of Care Code ED [employer] for [place] Fwd Exam Comprehensive
[2020-04-24] MEDS: piperacillin-tazobactam 3.375 GM in sodium chloride 0.9% (plus) 50 ML IV (14:26)
[2020-04-24 14:28] VITALS: BP 116/65; PULSE 75; O2SAT 94
[2020-04-24 15:01] VITALS: BP 116/69; PULSE 74; O2SAT 95
== END 2020-04-24 15:02 | disposition home or self-care (01) ==
PROVIDERS: Emergency Provider Family Medicine; PCP Internal Medicine
DX: K52.9 Noninfective gastroenteritis and colitis, unspecified (principal); N13.2 Hydronephrosis with renal and ureteral calculous obstruction; E11.9 Type 2 diabetes mellitus without complications; I10 Essential (primary) hypertension; E78.5 Hyperlipidemia, unspecified
CPT/HCPCS: 12345; 74177; 76705; 80053; 81003; 82140; 82550; 83605; 83690; 83880; 84145; 85025; 85610; 86140; 96374; 96375; 99283; J1200; J1720; J2543; Q9967

== ENCOUNTER 2020-05-31 13:07 | Outpatient (CLI) | payer MEDICARE, BC, SELFPAY ==
--- NOTE | 2020-05-31 | US_ITS ---
WS: [id number] ULTRASOUND ABDOMEN LIMITED CLINICAL INFORMATION: CIRRHOSIS COMPARISON: CT April 24, 2020 FINDINGS: Technically difficult examination. Cirrhotic liver Size: Upper limits of normal Craniocaudal length: 15.9 cm. Echogenicity: Heterogeneous Surface nodularity: Present Mass (size and location): None. Bile ducts Intrahepatic ducts: Normal. Common bile duct diameter: 2.8 mm. Gallbladder Normal. Gallstones: None. Gallbladder sludge: None. Gallbladder wall thickening: None. Pericholecystic fluid: None. Sonographic Val[place] sign: Absent. Pancreas Not well seen Right kidney: Normal. Hydronephrosis: None. Size: 12.3 cm x 5.8 cm x 5.1 cm. Abdominal aorta and IVC Visualized portions are normal. IVC not well seen. Ascites: None. US/US liver [id number] IMPRESSION: Technically difficult examination. 1. Cirrhotic configuration to the liver with coarse echogenicity. 2. Normal gallbladder. Normal common bile duct. 3. No hydronephrosis in the right kidney. 4. Pancreas is not well visualized.
== END 2020-05-31 13:08 | disposition home or self-care (01) ==
LOC: RADWPI 13:19 → RADOUTREAD 13:51
PROVIDERS: PCP Internal Medicine; Visit Provider Internal Medicine
DX: K74.60 Unspecified cirrhosis of liver (principal)
CPT/HCPCS: 76705

== ENCOUNTER 2020-06-13 19:27 | Emergency (ER) | payer MEDICARE, BC, SELFPAY ==
[2020-06-13 19:36] VITALS: BP 125/74; PULSE 91; RESP 14; TEMP 36.7; O2SAT 95; BMI 32.9
--- NOTE | 2020-06-13 19:44 | ECG_ITS ---
[facility] Test Date: 2020-06-13 Pat Name: Soren Fox Department: Room: Gender: Male Side Boss: : 1950 Requested By: Reid Lopez Order Number: [id number] Zaria MD: ALTHEA WEEKS Measurements Intervals [place] Rate: 82 P: 52 CO: 154 QRS: -12 QRSD: 89 T: 41 QT: 358 QTc: 418 Interpretive Statements SINUS RHYTHM LOW QRS VOLTAGE IN PRECORDIAL LEADS [QRS DEFLECTION < 1.0 mV IN CHEST LEADS] Compared to ECG 01/26/2019 00:31:25 Low QRS voltage now present Electronically Signed On 06-13-2020 21:15:51 CDT by ALTHEA WEEKS [id number]
--- NOTE | 2020-06-13 19:44 | XR_ITS ---
WS: [id number] XR lumbar spine 2-3V* [id number] REASON FOR EXAM: Pain FINDINGS: There are 5 nonrib-bearing lumbar vertebral bodies. Mild straightening of the normal lordosis of the lumbar spine. No focal vertebral body abnormality. Mild to moderate narrowing of the L5-S1 disc space. Mild degenerative changes in the facet joints at L5-S1. Right lower abdomen calcification of uncertain location and clinical significance. Do not appear to b e within the urinary tract. XR/XR lumbar spine 2-3V* [id number] IMPRESSION: Mild changes of degenerative spondylosis as above.
--- NOTE | 2020-06-13 19:45 | XR_ITS ---
WS: [id number] XR chest 1V portable [id number] REASON FOR EXAM: Cough FINDINGS: Compared to previous examination of 01/26/2019, there is increasing ectasia and dilatation of the asc ending aorta. Heart size is normal. Calcified granulomatous changes in both hemithoraces. No active pulmonary parenchymal pleural disease . Moderate changes of degenerative spondylosis in the mid and lower thoracic spine. XR/XR chest 1V portable [id number] IMPRESSION: Increasing ectasia and dilatation of the ascending thoracic aorta. Recommend fo llow-up chest x-rays every [address] of the chest a baseline.
--- NOTE | 2020-06-13 19:45 | W.ED.GENADLT ---
HPI - General Adult General: Chief complaint: General Medical Stated complaint: needs ammonia levels checked has sclerosis Time Seen by Provider: 06/13/20 19:39 Source: patient, family and RN notes reviewed Limitations: no limitations History of Present Illness: HPI narrative: This patient is a 69-year-old male who presents to the emergency department for low back pain and fatigue. Patient has a long history of cirrhosis of the liver and normally has good checkups. Patient denies history of drinking. States that he does not know why he developed cirrhosis of the liver but it runs in the family. Patient states he just seems to be more tired and fatigued over the past week or so. And his back's been bothering. Will do medical evaluation treat as needed Onset (ago): week(s) Pain Consistency: intermittent Associated symptoms: Deny chest pain, dyspnea, headache(s), nausea, rash, palpitations or vomiting Review of Systems General: Reports: 10 or more systems reviewed and unremarkable except in HPI and below Const: Reports: fatigue; Denies: fever(s), chills or body aches Eyes: Denies: change in vision or blurry vision ENMT: Denies: throat pain, hoarseness or mouth pain Card: Denies: chest pain, palpitations, irregular heart rhythm, edema, swelling of feet/ankles or lightheadedness Resp: Denies: dyspnea, productive cough, non-productive cough, wheezing or pain on inspiration GI: Reports: abdominal pain; Denies: nausea or vomiting : Reports: flank pain; Denies: dysuria, urinary frequency, urinary urgency or urinary hesitancy Musc: Reports: back pain; Denies: neck pain, extremity pain, extremity swelling, joint pain, joint swelling, joint redness, joint warmth or limited range of motion Skin/Breast: Denies: rash, pruritus, erythema or skin tenderness Neuro: Denies: headache(s), numbness in extremities or weakness in extremities Psych: Denies: anxiety or depression PFSH ED PFSH: Medical History BPH with obstruction/lower urinary tract symptoms Chronic constipation Colitis Diabetes mellitus Diverticulosis Enteritis Esophageal varices Hemorrhoids HTN (hypertension) Hydronephrosis Hyperlipemia Osteoarthritis Renal calculus Umbilical hernia Surgical History Hx of appendectomy Hx of umbilical hernia repair Social History Smoking and tobacco status: never smoked Alcohol intake: never Marital status: Current occupational status: retired Physical Exam Const: COMMON NORMALS: no acute distress, average body habitus, patient oriented x3, no limitations, healthy appearing, alert and well nourished HENMT: COMMON NORMALS: normocephalic, atraumatic, external ears normal, EAC's normal, TM's normal bilaterally, Normal external nose present and Normal nasal mucous membranes and turbinates present HEAD & SCALP: normocephalic and atraumatic NOSE: Normal external nose present and Normal nasal mucous membranes and turbinates present EXTERNAL EAR: Yes external ears normal EXTERNAL AUDITORY CANAL: EAC's normal TYMPANIC MEMBRANE: TM's normal bilaterally Neck/C-Spine: COMMON NORMALS: full ROM, no lymphadenopathy, supple, no meningeal signs, no JVD, Thyroid normal and No carotid bruits THYROID: Thyroid normal Chest: COMMONS NORMALS: normal inspection of the chest, normal palpation of entire chest wall, normal inspection of the breasts and normal palpation of the breasts Breast/axilla inspection: Yes normal inspection of the breasts BREAST/AXILLA PALPATION: Yes normal palpation of the breasts Resp: COMMON NORMALS: normal respiratory effort, No retractions, No use of accessory muscles, clear to auscultation bilaterally and percussion normal AUSCULTATION: clear to auscultation bilaterally PERCUSSION: percussion normal Cardio: COMMON NORMALS: no JVD, regular rate, regular rhythm, S1 normal heart sound present, S2 normal heart sound present, No gallops present (Cardio), No clicks present (Cardio), No murmurs present (Cardio), No rub (Cardio) and Peripheral pulses 2+ throughout RATE: regular rate RHYTHM: regular rhythm HEART SOUNDS: S1 normal heart sound present and S2 normal heart sound present PERIPHERAL PULSES: Peripheral pulses 2+ throughout GI: COMMON NORMALS: Normal to inspection, nondistended, normoactive bowel sounds present, Soft to palpation, non-tender, No hepatosplenomegaly present, no masses and no bruits PALPATION: Yes Soft to palpation and Yes No hepatosplenomegaly present : COMMON NORMALS: Yes no CVA tenderness BLADDER/KIDNEY EXAM: Yes no CVA tenderness Back/Pelvis: COMMON NORMALS: no CVA tenderness, thoracic and lumbar spine normal to inspection, no thoracic nor lumbar tenderness, thoraco-lumbar ROM normal and straight leg raise negative bilaterally Extremity: COMMON NORMALS: normal to inspection, full ROM, capillary refill normal, no joint enlargement, no clubbing, cyanosis or edema, no calf tenderness and no pedal edema Neuro: COMMON NORMALS: patient oriented x3 SENSORIUM/ORIENTATION: Yes alert MENINGEAL SIGNS: Yes no meningeal signs Course Reevaluation(s): Reevaluation #1: Patient doing well with no complaints. Chronic conditions appear to be stable. Patient be given nonsteroidal pain medicine for his low back pain. Patient is instructed to follow-up with his primary care physician for any further evaluation. Encourage p.o. fluids. Alternate heat and ice for low back pain. Take medications as prescribed. Follow-up with your PCP and/or neurologist as instructed. Time: 21:29 Vital Signs: Vital signs: Vital Signs Temperature 98.1 F 06/13/20 19:36 Pulse Rate 80 06/13/20 21:23 Respiratory Rate 19 H 06/13/20 21:23 Blood Pressure 116/60 06/13/20 21:23 Pulse Oximetry 95 06/13/20 21:23 [facility] [place] - General Adult Medical Records: Attestation: I reviewed the patient's medical records. Lab Data: Attestation: I reviewed the patient's lab results. Labs: Lab Results 06/13/20 06/13/20 06/13/20 Range/Units 19:07 19:07 19:07 WBC 3.8 L (4.0-10.0) 10^3/ uL RBC 3.74 L (4.1-5.3) 10^6/u L Hgb 11.7 (11.7-16.6) g/dL Hct 35.7 L (42.0-52.0) % MCV 95.5 H (80-94) fL MCH 31.3 (28.0-34.0) pg MCHC 32.8 (30.0-36.0) g/dL RDW 14.3 (12.1-15.1) % Plt Count 82 L (130-400) 10^3/c mm MPV 10.7 H (7.4-10.4) fL Neut % (Auto) 54.7 % Lymph % (Auto) 33.2 % Baca % (Auto) 8.1 % Eos % (Auto) 3.4 % Baso % (Auto) 0.3 % Neut # (Auto) 2.10 (1.8-7.7) 10^3/u L Lymph # (Auto) 1.3 (0.8-4.8) 10^3/u L Baca # (Auto) 0.3 (0.2-0.9) 10^3/u L Eos # (Auto) 0.1 (0.0-0.8) 10^3/u L Baso # (Auto) 0.0 (0.0-0.1) 10^3/u L Nucleated RBC % (a uto) 0 % Nucleated RBCs # 0.0 /100WBC PT 15.60 H (12.1-14.9) SECO NDS INR 1.20 (0.8-1.2) APTT 31.2 (23.9-36.7) SECO NDS Sodium 139 (136-145) mmol/L Potassium 4.3 (3.5-5.1) mmol/L Chloride 103 (98-107) mmol/L Carbon Dioxide 25 (22-29) mmol/L Anion Gap 15.3 (5-19) BUN 28 H (8-23) mg/dL Creatinine 1.3 H (0.7-1.2) mg/dL GFR Calculation 54.6 L (90-130) mL/min Glucose 100 (65-115) mg/dL Calculated Osmolal ity 294 (285-295) mOsm/k g Calcium 9.5 (8.5-10.5) mg/dL Total Bilirubin 0.7 (0.15-1.2) mg/dL AST 62 H (0-40) U/L ALT 42 H (0-41) U/L Alkaline Phosphata se 73 (40-130) IU/L Troponin T Gen 5 n g/L (0-15) ng/L NT-Pro-B Natriuret Pep 28 (0-125) pg/mL Total Protein 7.5 (6.6-8.7) g/dL Albumin 3.8 (3.5-5.2) g/dL Globulin 3.7 (1.3-4.6) g/dL Lipase 69 H (13-60) U/L Urine Color (Yellow) Urine Appearance (CLEAR) Urine pH (5-7) Ur Specific Gravit y (1.005-1.030) Urine Protein (Negative) Urine Glucose (UA) (Normal) Urine Ketones (Negative) Urine Blood (Negative) Urine Nitrate (Negative) Urine Bilirubin (Negative) Urine Urobilinogen (Negative) mg/dL Ur Leukocyte Marivel ase (Negative) Urine RBC Urine WBC Ur Squamous Epith Cells Ur Transition Epit h Cell Ur Renal Epithelia l Cell Calcium Oxalate Cr ystal Uric Acid Crystals Triple Phos Mariola ls Other Crystals Amorphous Sediment Urine Bacteria Hyaline Casts Fine Granular Cast s Coarse Granular Ca sts RBC Casts Other Casts Urine Mucus Urine Trichomonas Urine Yeast Urine Sperm Ur Oval Fat Bodies 06/13/20 06/13/20 Range/Units 19:07 19:55 WBC (4.0-10.0) 10^3/ uL RBC (4.1-5.3) 10^6/u L Hgb (11.7-16.6) g/dL Hct (42.0-52.0) % MCV (80-94) fL MCH (28.0-34.0) pg MCHC (30.0-36.0) g/dL RDW (12.1-15.1) % Plt Count (130-400) 10^3/c mm MPV (7.4-10.4) fL Neut % (Auto) % Lymph % (Auto) % Baca % (Auto) % Eos % (Auto) % Baso % (Auto) % Neut # (Auto) (1.8-7.7) 10^3/u L Lymph # (Auto) (0.8-4.8) 10^3/u L Baca # (Auto) (0.2-0.9) 10^3/u L Eos # (Auto) (0.0-0.8) 10^3/u L Baso # (Auto) (0.0-0.1) 10^3/u L Nucleated RBC % (a uto) % Nucleated RBCs # /100WBC PT (12.1-14.9) SECO NDS INR (0.8-1.2) APTT (23.9-36.7) SECO NDS Sodium (136-145) mmol/L Potassium (3.5-5.1) mmol/L Chloride (98-107) mmol/L Carbon Dioxide (22-29) mmol/L Anion Gap (5-19) BUN (8-23) mg/dL Creatinine (0.7-1.2) mg/dL GFR Calculation (90-130) mL/min Glucose (65-115) mg/dL Calculated Osmolal ity (285-295) mOsm/k g Calcium (8.5-10.5) mg/dL Total Bilirubin (0.15-1.2) mg/dL AST (0-40) U/L ALT (0-41) U/L Alkaline Phosphata se (40-130) IU/L Troponin T Gen 5 n g/L 11 (0-15) ng/L NT-Pro-B Natriuret Pep (0-125) pg/mL Total Protein (6.6-8.7) g/dL Albumin (3.5-5.2) g/dL Globulin (1.3-4.6) g/dL Lipase (13-60) U/L Urine Color Yellow (Yellow) Urine Appearance Clear (CLEAR) Urine pH 5 (5-7) Ur Specific Gravit y 1.020 (1.005-1.030) Urine Protein Neg (Negative) Urine Glucose (UA) Norm (Normal) Urine Ketones Negative (Negative) Urine Blood Neg (Negative) Urine Nitrate Negative (Negative) Urine Bilirubin Neg (Negative) Urine Urobilinogen Norm (Negative) mg/dL Ur Leukocyte Marivel ase Negative (Negative) Urine RBC Cancelled Urine WBC Cancelled Ur Squamous Epith Cells Cancelled Ur Transition Epit h Cell Cancelled Ur Renal Epithelia l Cell Cancelled Calcium Oxalate Cr ystal Cancelled Uric Acid Crystals Cancelled Triple Phos Mariola ls Cancelled Other Crystals Cancelled Amorphous Sediment Cancelled Urine Bacteria Cancelled Hyaline Casts Cancelled Fine Granular Cast s Cancelled Coarse Granular Ca sts Cancelled RBC Casts Cancelled Other Casts Cancelled Urine Mucus Cancelled Urine Trichomonas Cancelled Urine Yeast Cancelled Urine Sperm Cancelled Ur Oval Fat Bodies Cancelled EKG Data^: EKG 1: Attestation: I personally reviewed and interpreted this EKG as follows: EKG interpretation date: 06/13/20 EKG interpretation time: 19:50 Prior EKG tracings: available for review Interpretation: Sinus rhythm with a heart rate 82 nonspecific EKG. Discharge Plan Discharge Patient Disposition: Home Clinical Impression: Back pain, Fatigue, History of cirrhosis Condition: Stable Prescriptions: No Action doxycycline hyclate 100 mg tablet 100 mg PO BID@0900,1999 RF: 0 multivitamin [Multiple Vitamins] Tablet 1 tab PO DAILY@08 RF: 0 metformin 500 mg tablet 500 mg PO BID@, RF: 0 lisinopril 20 mg tablet 10 mg PO DAILY@08 RF: 0 tamsulosin 0.4 mg capsule 0.4 mg PO BID@, RF: 0 ropinirole 2 mg tablet 2 mg PO TID@,, RF: 0 gabapentin 300 mg capsule 600 mg PO TID@, RF: 0 dicyclomine 10 mg capsule 10 mg PO QID PRN (Reason: Abdominal Discomfort) RF: 0 lactulose 10 gram/15 mL solution 30 ml PO DAILY RF: 0 furosemide [Lasix] 20 mg Tablet 20 mg PO DAILY@0900 PRN (Reason: Edema) RF: 0 albuterol sulfate 90 mcg/actuation Hfa Aerosol Inhaler 1 puff INHALATION QID PRN (Reason: Shortness Of Breath) RF: 0 finasteride 5 mg tablet 5 mg PO DAILY@08 RF: 0 Discharge Orders: Discharge ED (Routine); Ordered 06/13/20 Ordered By: Reid Lopez Referrals: Ghanshyam Zhang DO [Primary Care Provider] - Discharge Diet: Advance as tolerated Discharge Activity: Resume usual activity Patient Instructions: Opioid Safety Activity Restrictions/Additional Instructions: Encourage p.o. fluids. Alternate heat and ice for low back pain. Take medications as prescribed. Follow-up with your PCP and/or neurologist as instructed. Coding Level of Care Code ED Hostler Helper for Chg Fwd Exam Comprehensive
[2020-06-13 19:50] VITALS: BP 150/80; PULSE 85; RESP 17; O2SAT 95
[2020-06-13 19:58] LABS: Basophils % 0.3 %; Eosinophils # 0.1 10^3/uL (0.0-0.8); Eosinophils % 3.4 %; Hematocrit 35.7 % (42.0-52.0); Hemoglobin 11.7 g/dL (11.7-16.6); Lymphocytes # 1.3 10^3/uL (0.8-4.8); Lymphocytes % 33.2 %; Mean Corpuscular HGB Conc 32.8 g/dL (30.0-36.0); Mean Corpuscular Hemoglobin 31.3 pg (28.0-34.0); Mean Corpuscular Volume 95.5 fL (80-94); Mean Platelet Volume 10.7 fL (7.4-10.4); Monocytes # 0.3 10^3/uL (0.2-0.9); Monocytes % 8.1 %; Neutrophils % 54.7 %; Nucleated Red Blood Cells % 0 %; Platelet Count 82 10^3/cmm (130-400); Red Blood Count 3.74 10^6/uL (4.1-5.3); Red Cell Distribution Width 14.3 % (12.1-15.1); White Blood Count 3.8 10^3/uL (4.0-10.0)
[2020-06-13 20:15] VITALS: BP 130/64; PULSE 80; RESP 17; O2SAT 95
[2020-06-13 20:23] LABS: Alanine Aminotransferase 42 U/L (0-41); Albumin Level 3.8 g/dL (3.5-5.2); Alkaline Phosphatase 73 IU/L (40-130); Anion Gap 15.3 (5-19); Aspartate Amino Transferase 62 U/L (0-40); Blood Urea Nitrogen 28 mg/dL (8-23); Calcium 9.5 mg/dL (8.5-10.5); Carbon Dioxide 25 mmol/L (22-29); Chloride 103 mmol/L (98-107); Globulin 3.7 g/dL (1.3-4.6); Glomerular Filtration Rate 54.6 mL/min (90-130); Glucose 100 mg/dL (65-115); Lipase 69 U/L (13-60); NT Pro B Type Natriuretic Pept 28 pg/mL (0-125); Osmolality Calculated 294 mOsm/kg (285-295); Potassium 4.3 mmol/L (3.5-5.1); Sodium 139 mmol/L (136-145); Total Bilirubin 0.7 mg/dL (0.15-1.2); Total Protein 7.5 g/dL (6.6-8.7)
[2020-06-13 20:27] LABS: Troponin T (5th) Once 11 ng/L (0-15)
[2020-06-13 20:37] LABS: Bilirubin Urine Neg (Negative); Blood Urine Neg (Negative); Glucose Urine UA Norm (Normal); Ketones Urine Negative (Negative); Leukocyte Esterase Urine Negative (Negative); Nitrate Urine Negative (Negative); Protein Urine Neg (Negative); Urine Appearance Clear (CLEAR); Urine Color Yellow (Yellow); Urobilinogen Urine Norm (Negative); pH Urine 5 (5-7)
[2020-06-13 20:38] LABS: Add Urine Microscopic? NO
[2020-06-13 20:40] LABS: Partial Thromboplastin Time 31.2 SECONDS (23.9-36.7)
[2020-06-13 20:47] VITALS: BP 102/57; PULSE 76; RESP 18; O2SAT 94
[2020-06-13 21:23] VITALS: BP 116/60; PULSE 80; RESP 19; O2SAT 95
[2020-06-13 21:29] LABS: Ammonia 81 umol/L (16-60)
[2020-06-13 21:53] VITALS: BP 117/70; PULSE 80; RESP 20; O2SAT 95
== END 2020-06-13 21:59 | disposition home or self-care (01) ==
PROVIDERS: Emergency Provider Emergency Medicine; PCP Internal Medicine
DX: M54.9 Dorsalgia, unspecified (principal); R53.83 Other fatigue; K74.60 Unspecified cirrhosis of liver; E11.9 Type 2 diabetes mellitus without complications; I10 Essential (primary) hypertension; E78.5 Hyperlipidemia, unspecified
CPT/HCPCS: 71045; 72100; 80053; 81001; 81003; 82140; 83690; 83880; 84484; 85025; 85610; 85730; 93005; 99283